=== PATIENT | male | born 1970 | race American Indian/Alaskan Native ===

== ENCOUNTER 2017-08-21 07:29 | Emergency (ER) | payer MEDICAID ==
--- NOTE | 2017-08-21 08:10 | ED PDOC ---
Arrival/HPI - General Time Seen by Provider: 08/21/17 08:02 Historian: Patient - History of Present Illness Narrative History of Present Illness (Text): 08/21/17 08:00 46 year old male, presents to the emergency department for removal of stitches. Patient reports he had 4-6 stitches placed on his right forehead to his upper right eyelid 2 weeks ago at [facility]. Patient states a piece of glass is what caused his open wound. Patient denies the wound from having drainage/pus, erythema, warmth. He also denies fever, nausea, vomiting, or other complaints. Time/Duration: > week (2 weeks) Context: Street Past Medical History - Provider Review Nursing Documentation Reviewed: Yes Family/Social History - Physician Review Nursing Documentation Reviewed: Yes Family/Social History: Unknown Family HX Allergies/Home Meds Allergies/Adverse Reactions: Allergies soy Allergy (Intermediate, Verified 08/05/17 10:15) ANGIOEDEMA Home Medications: Home Meds Medication Instructions Recorded Confirmed Pantoprazole Sodium [Protonix] 40 mg PO DAILY 08/05/17 08/05/17 oxyCODONE/Acetaminophen [Percocet 1 tab PO TID PRN 08/05/17 08/05/17 5/325 mg Tab] Oxycodone HCl/Acetaminophen 1 each PO BID 08/21/17 08/21/17 [Percocet 10-325 mg Tablet] Pantoprazole Sodium [Protonix] 40 mg PO DAILY 08/21/17 08/21/17 Review of Systems - Physician Review All systems were reviewed & negative as marked: Yes - Review of Systems Constitutional: absent: Fevers Respiratory: absent: SOB Skin: Other (healing wound from stitches on right side of forehead to upper right eyelid) Physical Exam Vital Signs Reviewed: Yes Vital Signs Temp Pulse Resp BP Pulse Ox 08/21/17 08:15 97.2 F L 88 18 133/72 98 08/21/17 08:02 84 18 135/77 97 Blood Pressure: Normal Pulse: Regular Respiratory Rate: Normal Appearance: Positive for: Well-Appearing, Non-Toxic, Comfortable Pain Distress: None Mental Status: Positive for: Alert and Oriented X 3 - Systems Exam Head: Present: Atraumatic, Normocephalic. No: Laceration Pupils: Present: PERRL Extroacular Muscles: Present: EOMI Conjunctiva: Present: Normal Neurological: Present: GCS=15, CN II-XII Intact, Speech Normal Skin: Present: Warm, Dry, Normal Color, Other (healing wound from stitches on right side of forehead to upper right eyelid). No: Rashes Psychiatric: Present: Alert, Oriented x 3, Normal Insight, Normal Concentration Medical Decision Making ED Course and Treatment: 08/21/17 Impression: 46 year old male with healing wound from stitches on right side of forehead to upper right eyelid who presents to emergency department for stitches removed. Plan: -- removal of stitches -- Reassess and disposition Progress Notes: 4 stitches were removed from patient right side of forehead to upper right eyelid. The wound is healed and there is no sign of erythema, pus, or warmth. There were no complications and patient tolerated the removal of stitches well. Patient was advised to come back to emergency department if any infection is noted. - Scribe Statement The provider has reviewed the documentation as recorded by the Steveibe Onelia Norris Provider Scribe Attestation: All medical record entries made by the Scribe were at my direction and personally dictated by me. I have reviewed the chart and agree that the record accurately reflects my personal performance of the history, physical exam, medical decision making, and the department course for this patient. I have also personally directed, reviewed, and agree with the discharge instructions and disposition. Disposition/Present on Arrival - Present on Arrival Any Indicators Present on Arrival: No - Disposition Have Diagnosis and Disposition been Completed?: Yes Diagnosis: Visit for suture removal Disposition: HOME/ ROUTINE Disposition Time: 08:55 Patient Plan: Discharge Condition: IMPROVED Discharge Instructions (ExitCare): Stitches Removal Additional Instructions: Mr Vaughan thank you for letting us take care of you today. Your provider was Dr. Okeefe. You were treated for Suture Removal. The emergency medical care you received today was directed at your acute symptoms. If you were prescribed any medication, please fill it and take as directed. It may take several days for your symptoms to resolve. Return to the Emergency Department if your symptoms worsen, do not improve, or if you have any other problems. Please contact your doctor or call one of the physicians/clinics you have been referred to that are listed on the Patient Visit Information form that is included in your discharge packet. Bring any paperwork you were given at discharge with you along with any medications you are taking to your follow up visit. Our treatment cannot replace ongoing medical care by a primary care provider (PCP) outside of the emergency department. Thank you for allowing the [email or web address] team to be part of your care today. If you had an X-Ray or CT scan: A Radiologist will review the ED reading if any change in treatment is needed we will contact you. If you had a blood, urine, or wound culture: It will take several days for the results, if any change in treatment is needed we will contact you. If you had an STI test: It will take 48 hours for the results. Please call after 1 week if you have not heard back. Forms: WORK NOTE
[2017-08-21 08:11] VITALS: RESP 18
[2017-08-21 08:22] VITALS: BP 133/72; PULSE 88; TEMP 97.2; O2SAT 98
== END 2017-08-21 08:56 | disposition home or self-care (01) ==
LOC: ED 07:29 → MERGE 07:29 → ED 08:56
DX: Z48.02 Encounter for removal of sutures (principal)